=== PATIENT | female | born 1975 | race Caucasian/White ===

== ENCOUNTER → 2020-08-17 | Outpatient (CLI) | payer OTHER ==
[~2020-08-17] MED LIST: ALBU17IN INH; CLOB-49 TOP; DOCU10CA PO; LOES1TAB12 PO; PERC5TAB12 PO
[2020-08-17 14:16] LABS: ALBUMIN 3.2 GM/DL (3.2-5.2); ALT/SGPT 27 U/L (12-78); BILIRUBIN,DIRECT < 0.1 MG/DL (0.0-0.2); BILIRUBIN,TOTAL 0.2 MG/DL (0.2-1.0); BLOOD UREA NITROGEN 11 MG/DL (7-18); CALCIUM LEVEL 8.9 MG/DL (8.5-10.1); CARBON DIOXIDE LEVEL 30 MEQ/L (21-32); CHLORIDE LEVEL 106 MEQ/L (98-107); GLOMERULAR FILTRATION RATE > 60.0 (>58); GLUCOSE, FASTING 100 MG/DL (70-100); POTASSIUM SERUM 3.6 MEQ/L (3.5-5.1); SODIUM LEVEL 142 MEQ/L (136-145); TOTAL PROTEIN 6.2 GM/DL (6.4-8.2)
[2020-08-17 14:22] LABS: BASO % 0.4 % (0.0-1.0); EOS # 0.2 10^3/uL (0.0-0.5); HEMATOCRIT 36.5 % (36.0-47.0); HEMOGLOBIN 11.8 g/dl (12.0-15.5); LYMPH # 1.8 10^3/uL (1.5-5.0); LYMPH % 21.8 % (24.0-44.0); MEAN CORPUSCULAR HEMOGLOBIN 31.9 pg (27.0-33.0); MEAN CORPUSCULAR HGB CONC 32.3 g/dl (32.0-36.5); MEAN CORPUSCULAR VOLUME 98.6 fl (80.0-96.0); MONO # 0.6 10^3/uL (0.0-0.8); MONO % 7.7 % (0.0-5.0); NEUTROPHILS # 5.4 10^3/uL (1.5-8.5); NEUTROPHILS % 67.7 % (36.0-66.0); PLATELET COUNT, AUTOMATED 232 10^3/uL (150-450)
[2020-08-17 15:04] LABS: HIV 1&2 SCREEN CENTAUR NEGATIVE (NEGATIVE)
== END ==
LOC: M PLALAB 10:00
PROVIDERS: ATTEND Physician Assistant
DX: L40.0 Psoriasis vulgaris (principal)

== ENCOUNTER → 2021-10-23 | Outpatient (CLI) | payer OTHER | LOC: M LAB 09:57 | PROVIDERS: ATTEND Physician Assistant | DX: Z51.81 Encounter for therapeutic drug level monitoring (principal); Z79.899 Other long term (current) drug therapy ==

== ENCOUNTER → 2022-09-13 | Outpatient (CLI) | payer OTHER | LOC: M PLALAB 15:11 | PROVIDERS: ATTEND Physician Assistant | DX: L40.0 Psoriasis vulgaris (principal) ==

== ENCOUNTER → 2023-02-03 | Outpatient (REF) | payer OTHER | LOC: M LAB REF 20:21 | PROVIDERS: ATTEND Physician Assistant | DX: R07.0 Pain in throat (principal) ==

== ENCOUNTER → 2023-08-29 | Outpatient (CLI) | payer OTHER | LOC: M LAB 10:55 | PROVIDERS: ATTEND Physician Assistant | DX: L40.0 Psoriasis vulgaris (principal) ==

== ENCOUNTER → 2024-11-11 | Outpatient (CLI) | payer OTHER | LOC: M RAD 15:47 | PROVIDERS: ATTEND Student in an Organized Health Care Education/Training Program | DX: M79.662 Pain in left lower leg (principal) ==

== ENCOUNTER → 2025-02-10 | Outpatient (CLI) | payer OTHER | LOC: M LAB 14:37 | PROVIDERS: ATTEND Physician Assistant | DX: L40.9 Psoriasis, unspecified (principal) ==